=== PATIENT | female | born 1945 | race Caucasian/White ===

== ENCOUNTER → 2018-10-18 | Outpatient (CLI) | payer OTHER ==
[~2018-10-18] VITALS: Ht 165.1 cm; Wt 59.0 kg
[~2018-10-18] MED LIST: AMBIEN 5 MG TABL5 M1 PO; AMBIEN PO; ANTIVERT25 MG PO; BACTROBAN15 GM TP; BIOTIN5 M1 PO; CENTRUM SILVER1 EAC4 PO; CRANBERRY500 M3 PO; DAPSONE25 MG PO; EFFEXOR XR37.5 MG PO; FOSAMAX 70 MG T70 M1 PO; GLIPIZIDE ER5 MG PO; GLUCOPHAGE XR500 MG PO; K-DUR 20 MEQ T20 MEQ PO; L-LYSINE500 M1 PO; LEVAQUIN 750 M750 MG PO; LIPITOR40 MG PO; LOSARTAN POTASS50 MG PO; METFORMIN 500500 MG PO; NOLVADEX20 MG PO; SIMVASTATIN80 MG PO; SYNTHROID200 MCG PO; TRAZODONE HCL50 MG PO; VITAMIN D1000 UNI1 PO; ZOFRAN ODT4 MG PO
--- NOTE | 2018-10-19 13:36 | P ---
[facility] [place] [address] PROCEDURE REPORT Name: RUPAL MCINTYRE Room #: REG [facility]#: [id number] Admission: 10/18/18 ������������������ Attend Phys: Valerio Sawyer MD Discharge: ������������������ Date of : 45 Report #: [id number] THIS REPORT FOR: //name// CC: LAWRENCE Sawyer DATE OF SERVICE: 10/18/2018 OUTPATIENT COLONOSCOPY: BRIEF HISTORY: The patient is a 73-year-old woman with history of colon polyps for high risk screening colonoscopy. PREOPERATIVE DIAGNOSIS: High risk screening colonoscopy. POSTOPERATIVE DIAGNOSIS: Colon polyps. MEDICATIONS: Deep sedation with propofol per anesthesia. SPECIMENS: 1. Cecal polyp. 2. Polyp at 60 cm. 3. Polyp at 40 cm. ESTIMATED BLOOD LOSS: 3 mL. PROCEDURE: Colonoscopy to cecum and terminal ileum with biopsy. FINDINGS: Prior to propofol sedation, procedure of colonoscopy discussed with the patient as well as potential risks and its complications. She indicates she understands and desires to proceed. DESCRIPTION: With the patient in left lateral decubitus position, digital examination was completed, which revealed no abnormalities. Subsequently, the Olympus video colonoscope was introduced in the rectum, advanced under direct vision to the cecum. Done with minimal difficulty. The cecum was identified by the ileocecal valve and the appendiceal orifice. I was able to visualize the distal segment of the terminal ileum, which was inspected and noted to be unremarkable. At that point, the scope was slowly withdrawn and careful circumferential views obtained. Upon slow withdrawal of the scope, the prep was good. The mucosa was within normal limits, normal vascular pattern, normal light reflex. As we withdrew the scope, she was noted to have a diminutive polyp in the cecum. This was removed with biopsy forceps. Scope was further withdrawn and no additional abnormalities were noted. The descending colon was reached and at 60 cm, another diminutive polyp was seen and removed by biopsy [facility] [address] [place] [address] PROCEDURE REPORT Name: RUPAL MCINTYRE Room #: REG [facility]#: [id number] Admission: 10/18/18 ������������������ Attend Phys: Valerio Sawyer MD Discharge: ������������������ Date of : 45 Report #: [id number] and at 40 cm, another diminutive polyp was seen by biopsy. Scope was further withdrawn and no additional polyps were seen. Scope was withdrawn in the rectum. No abnormalities were seen. No other lesions were seen on this exam. Scope was withdrawn. The patient tolerated the procedure well. CONDITION OF THE PATIENT UPON DISCHARGE: Following procedure, the patient drowsy, aroused, conversant and will be discharged home when fully ambulatory. INSTRUCTIONS TO THE PATIENT AND FAMILY AT THE TIME OF DISCHARGE: Three diminutive polyps identified and removed as described above. We will follow up on the path and make further recommendations. If all 3 are adenomas, return in 3 years. If only 1 or 2 adenomas, then 5 years will be indicated. If none are adenomas, then she should return in 10 years. Last colonoscopy was 5 years ago. Withdrawal time from the cecum was 17 minutes and 5 seconds. ��������������������������������������������� <ELECTRONICALLY SIGNED> ���������������������������������������� By: Valerio Sawyer MD ��������������������������������������������� 10/19/18 1336 1227 0227 Valerio Sawyer MD /nt
--- NOTE | 2018-10-20 17:10 | PATH ---
[facility] [address] [place] [address] PATHOLOGY RPT PROCEDURE Name: BRITTANY VASQUEZ Room #: REG [facility]#: [id number] ������������������ Admission: 10/18/18 ������������������ Date of : 45 Discharge: Report #: [id number] Path Case #: [id number] [facility] Accession Number: [id number] . 01 Material submitted: . PART A: cecum - BX POLYP AT CECUM PART B: colon - BX POLYP AT 60CM PART C: colon - BX POLYP AT 40CM . 01 Clinical history: . Preop DX: Hx polyps Postop DX: Colon polyps . 02 Diagnosis: A. Polyp, at cecum, endoscopic biopsy: - Tubular adenoma. - Negative for high grade dysplasia. . B. Polyp, at 60 cm, endoscopic biopsy: - Tubular adenoma. - Negative for high grade dysplasia. . C. Polyp, at 40 cm, endoscopic biopsy: - Tubular adenoma. - Negative for high grade dysplasia. . (IUV:mml; 10/20/2018) QLM/10/20/2018 . 02 Electronically signed: . Carol Alexandra MD, Pathologist NPI- [id number] . 01 Gross description: . A. Received in formalin labeled "Brittany Vasquez, Bx polyp at cecum," are two segments of pale cassidy soft tissue measuring 0.2 x 0.2 x 0.1 cm and 0.5 x 0.3 x 0.2 cm in greatest dimensions. The specimen is submitted entirely in cassette A1. . B. Received in formalin labeled "Brittany Vasquez, Bx polyp at 60 cm," are four segments of pale cassidy soft tissue measuring 0.5 x 0.4 x 0.1 cm in aggregate dimensions and ranging from 0.2 to 0.3 cm in maximum dimension. The specimen is submitted entirely in cassette B1. . C. Received in formalin labeled "Brittany Vasquez, Bx polyp at 40 cm," are two segments of cassidy-brown soft tissue measuring 0.3 x 0.2 x 0.2 cm each in greatest dimensions. The specimen is submitted entirely in cassette C1. [address] [address] PATHOLOGY RPT PROCEDURE Name: BRITTANY VASQUEZ A Room #: REG [facility]#: [id number] ������������������ Admission: 10/18/18 ������������������ Date of : 45 Discharge: Report #: [id number] Path Case #: [id number] (DAC; 10/19/2018) XDC/XDC . 02 Pathologist provided ICD-10: D12.0, D12.6, Z86.010 . 02 CPT . 629995, 330536, 906225 Specimen Comment: A courtesy copy of this report has been sent to Specimen Comment: [phone], . Specimen Comment: Report sent to / DR SAHA Performed at: [address], [place] [id number] MD Gunner Gifford MD Phone: [phone] Performed at: [address] [id number] MD Carol Alexandra MD Phone: [phone]
== END | disposition home or self-care (01) ==
LOC: GI 10-04 14:10
DX: Z12.11 Encounter for screening for malignant neoplasm of colon (principal); Z86.010 Personal history of colon polyps; K63.5 Polyp of colon; D12.0 Benign neoplasm of cecum; D12.5 Benign neoplasm of sigmoid colon; D12.4 Benign neoplasm of descending colon; K21.9 Gastro-esophageal reflux disease without esophagitis; I10 Essential (primary) hypertension; E78.5 Hyperlipidemia, unspecified; E03.9 Hypothyroidism, unspecified; E11.9 Type 2 diabetes mellitus without complications; F32.9 Major depressive disorder, single episode, unspecified; Z98.41 Cataract extraction status, right eye; Z85.3 Personal history of malignant neoplasm of breast; Z87.891 Personal history of nicotine dependence; Z98.42 Cataract extraction status, left eye; Z98.51 Tubal ligation status; Z98.890 Other specified postprocedural states; Z79.899 Other long term (current) drug therapy
CPT/HCPCS: 62110; 62900